=== PATIENT | male | born 1970 | race Two or more races ===

== ENCOUNTER 2024-01-29 02:29 | Inpatient (IN) | payer MEDICARE, SELFPAY ==
[~2024-01-29] VITALS: Ht 177.8 cm; Wt 86.0 kg
[2024-01-29] MEDS ORDERED: OLANZapine ORAL DISINTEGRATING TAB 5MG PO PRN (02:40)
[2024-01-29 03:01] LABS: HEMATOCRIT 43.3 % (42.0-52.0); HEMOGLOBIN 14.3 g/dl (13.5-17.5); MEAN CORPUSCULAR HEMOGLOBIN 29.9 pg (27.0-33.0); MEAN CORPUSCULAR VOLUME 90.6 fl (80.0-96.0); PLATELET COUNT, AUTOMATED 211 10^3/uL (150-450); RED BLOOD COUNT 4.78 10^6/uL (4.30-6.10); WHITE BLOOD COUNT 6.7 10^3/uL (4.0-10.0)
[2024-01-29] MEDS: diphenhydrAMINE 50MG/ML VIAL IM ONE (03:13)
[2024-01-29] MEDS: HALOPERIDOL LACTATE 5MG/ML VIAL IM ONE (03:14)
[2024-01-29] MEDS: LORazepam 2 MG/ML 1ML VIAL IM ONE (03:14)
[2024-01-29 03:30] LABS: ALBUMIN 3.9 G/DL (3.2-5.2); ALKALINE PHOSPHATASE 64 U/L (46-116); ALT/SGPT 17 U/L (7.0-40); AST/SGOT 20 U/L (<34); BILIRUBIN,DIRECT 0.1 MG/DL (<0.4); BILIRUBIN,TOTAL 0.4 MG/DL (0.3-1.2); BLOOD UREA NITROGEN 12 MG/DL (9-23); CALCIUM LEVEL 9.4 MG/DL (8.5-10.1); CARBON DIOXIDE LEVEL 24 MMOL/L (20-31); CHLORIDE LEVEL 111 MMOL/L (98-107); CREATININE FOR GFR 0.99 MG/DL (0.70-1.30); GLOMERULAR FILTRATION RATE > 60.0 (>56); GLUCOSE, FASTING 83 MG/DL (60-100); POTASSIUM SERUM 3.8 MMOL/L (3.5-5.1); SALICYLATE LEVEL < 3.0 MG/DL (<30); SODIUM LEVEL 142 MMOL/L (136-145); TOTAL PROTEIN 7.2 G/DL (5.7-8.2)
[2024-01-29 03:32] LABS: ETHYL ALCOHOL (ETHANOL) 0.185 % (0.000-0.010)
[2024-01-29 03:36] LABS: THYROID STIMULATING HORMONE 1.191 uIU/ML (0.55-4.78)
[2024-01-29 17:12] LABS: AMPHETAMINES LEVEL URINE NEGATIVE (NEGATIVE); BARBITURATES URINE NEGATIVE (NEGATIVE); BENZODIAZEPINES URINE NEGATIVE (NEGATIVE); COCAINE METABOLITE URINE NEGATIVE (NEGATIVE); METHADONE URINE NEGATIVE (NEGATIVE); OPIATES URINE NEGATIVE (NEGATIVE)
[2024-01-29 17:13] LABS: CANNABINOIDS URINE NEGATIVE (NEGATIVE); PHENCYCLIDINE URINE NEGATIVE (NEGATIVE)
[2024-01-29] MEDS ORDERED: MAALOX 30 ML SUSP *UDC PO PRN (18:25)
[2024-01-29] MEDS ORDERED: LORazepam 2 MG TAB PO PRN (18:25)
[2024-01-29] MEDS ORDERED: IBUPROFEN 400MG TAB PO PRN (18:25)
[2024-01-29] MEDS ORDERED: MOM 30ML SUSPENSION UDC PO PRN (18:25)
[2024-01-29] MEDS ORDERED: diphenhydrAMINE 25MG CAP PO PRN (18:25)
[2024-01-29] MEDS ORDERED: HOME MED LIST COMPLETE! XX SCH (20:45)
[2024-01-29] MEDS: THIAMINE 100 MG TAB PO SCH (21:00)
[2024-01-29 23:37] VITALS: BP 124/58
[2024-01-30 06:25] VITALS: BP 103/67; TEMP 98.9; O2SAT 96
[2024-01-30 08:00] VITALS: BP 116/71
[2024-01-30] MEDS ORDERED: MULTIVITAMINS/MINERALS THERAP 1 TAB PO SCH (09:00)
[2024-01-30] MEDS ORDERED: FOLIC ACID 1MG TAB PO SCH (09:00)
[2024-01-30] MEDS: MULTIVITAMINS/MINERALS THERAP 1 TAB PO SCH (09:36)
[2024-01-30] MEDS: FOLIC ACID 1MG TAB PO SCH (09:36)
[2024-01-30] MEDS: ACETAMINOPHEN TAB 650MG DOSE (2X325MG) PO PRN (09:48)
[2024-01-30] MEDS ORDERED: LORazepam 2 MG TAB PO PRN (15:30)
[2024-01-30 16:00] VITALS: BP 108/65
[2024-01-30] MEDS ORDERED: ACETAMINOPHEN 500 MG TAB PO PRN (16:00)
[2024-01-30] MEDS ORDERED: THIAMINE 100 MG TAB PO SCH (16:00)
[2024-01-30 16:38] VITALS: BP 108/65; TEMP 97.8; O2SAT 100
[2024-01-30] MEDS: traZODone 50 MG TAB PO PRN (21:02)
[2024-01-30 22:17] VITALS: BP 106/68
[2024-01-31 06:14] VITALS: BP 134/74; TEMP 98.8; O2SAT 98
[2024-01-31 16:57] VITALS: BP 140/96; TEMP 97.8; O2SAT 100
[2024-02-01 06:29] VITALS: BP 144/91; TEMP 98.1; O2SAT 99
[2024-02-01 17:16] VITALS: BP 132/88; TEMP 97.4; O2SAT 100
[2024-02-02 06:23] VITALS: BP 119/86; TEMP 97.4; O2SAT 20
== END 2024-02-02 11:29 | disposition home or self-care (01) | DRG 897 ==
LOC: M ED 02:29 → M ED INP 18:22 → M PSY 21:29
PROVIDERS: ADMIT Psychiatry & Neurology Psychiatry; ATTEND Psychiatry & Neurology Psychiatry
DX: F10.920 Alcohol use, unspecified with intoxication, uncomplicated (principal); F25.0 Schizoaffective disorder, bipolar type; I10 Essential (primary) hypertension; D50.9 Iron deficiency anemia, unspecified; F43.10 Post-traumatic stress disorder, unspecified; F17.210 Nicotine dependence, cigarettes, uncomplicated

== ENCOUNTER 2024-03-01 10:41 | Emergency (ER) | payer MEDICARE ==
[~2024-03-01] VITALS: Ht 180.3 cm; Wt 83.0 kg
[2024-03-01] MEDS ORDERED: MELA1LIQ2 PO (10:58)
[2024-03-01] MEDS ORDERED: SERO50TA PO (10:58)
[2024-03-01] MEDS ORDERED: ABIL1INJ IM (10:58)
[2024-03-01 11:47] VITALS: O2SAT 98
[2024-03-01] MEDS ORDERED: VENTAER INH (13:11)
[2024-03-01] MEDS ORDERED: MUCI600T31 PO (13:11)
[2024-03-01] MEDS ORDERED: BENZ200C70 PO (13:11)
[2024-03-01 13:32] VITALS: BP 131/82; TEMP 97.3; O2SAT 99
== END 2024-03-01 13:34 | disposition home or self-care (01) ==
LOC: M ED 10:41
DX: J06.9 Acute upper respiratory infection, unspecified (principal); B34.8 Other viral infections of unspecified site; F17.200 Nicotine dependence, unspecified, uncomplicated; Z11.52 Encounter for screening for COVID-19